=== PATIENT | male | born 1925 | race Caucasian/White ===

== ENCOUNTER 2016-09-16 10:25 | Outpatient (CLI) | payer MEDICARE, OTHER ==
[2016-09-16] MEDS ORDERED: BARIUM SULFATE 454 GM TUBE PO ONE (11:42)
[2016-09-16] MEDS ORDERED: BARIUM SULFATE 148 GM POWDER PO ONE (11:42)
--- NOTE | 2016-09-16 13:17 | XRAY Report ---
TWO-VIEW CHEST: 09/16/2016 CLINICAL INDICATION: Dysphagia. COMPARISON: 01/07/2014 FINDINGS: Frontal and lateral views of the chest demonstrate a normal cardiac silhouette. Left subc lavian pacemaker/AICD is stable. The lungs are clear. No effusion or pneumothorax is evident. IMPRESSION: STABLE PACEMAKER. NO EVIDENCE OF ACUTE CARDIOPULMONARY DISEASE. JOB #: [id number] EXT JOB #:[id number]
--- NOTE | 2016-09-16 13:18 | XRAY Report ---
MODIFIED BARIUM SWALLOW: 09/16/2016 CLINICAL INDICATION: Dysphagia. FINDINGS: Various consistencies of barium were prepared and administered in conjunction with Speech Pathology. There was trace penetration with thin liquids, without jagdeep aspiration. Other consisten cies were unremarkable. Please also refer to full report from Speech Pathology. IMPRESSION: TRACE PENETRATION WITH THIN LIQUIDS. NO JAGDEEP ASPIRATION. FLUOROSCOPY TIME: 57 seconds; 1 spot image obtained (cinefluoroscopy recorded). JOB #: [id number] EXT JOB #:[id number]
== END 2016-09-16 10:26 | disposition home or self-care (01) ==
LOC: DI 10:25
PROVIDERS: ATTEND Internal Medicine
DX: R13.10 Dysphagia, unspecified (principal); Z95.0 Presence of cardiac pacemaker; Z95.810 Presence of automatic (implantable) cardiac defibrillator
CPT/HCPCS: 71020; 74230; 92611; G8996; G8997; G8998

== ENCOUNTER 2017-04-01 22:32 | Outpatient (CLI) | payer MEDICARE, OTHER | END 2017-04-01 22:33 | disposition short-term general hospital (02) | LOC: EMS 22:32 | PROVIDERS: ATTEND Surgery | DX: R46.4 Slowness and poor responsiveness (principal); R46.89 Other symptoms and signs involving appearance and behavior; R47.81 Slurred speech | CPT/HCPCS: A0425; A0427; A0888 ==

== ENCOUNTER 2017-04-19 17:57 | Outpatient (CLI) | payer MEDICARE, OTHER | END 2017-04-19 17:58 | disposition short-term general hospital (02) | LOC: EMS 17:57 | PROVIDERS: ATTEND Surgery | DX: R41.82 Altered mental status, unspecified (principal); R50.9 Fever, unspecified | CPT/HCPCS: A0425; A0427; A0888 ==